=== PATIENT | male | born 1955 | race Two or more races ===

== ENCOUNTER 2018-02-08 08:08 | Outpatient (CLI) | payer OTHER | END 2018-02-08 08:16 | disposition home or self-care (01) | LOC: SONOGRAMA 08:08 | DX: E04.1 Nontoxic single thyroid nodule (principal) ==

== ENCOUNTER → 2020-04-16 | Outpatient (CLI) | payer OTHER | END | disposition home or self-care (01) | LOC: SONOGRAMA 11:59 | PROVIDERS: ATTEND Pathology Anatomic Pathology & Clinical Pathology | DX: E04.1 Nontoxic single thyroid nodule (principal); E07.89 Other specified disorders of thyroid; D34 Benign neoplasm of thyroid gland ==